=== PATIENT | female | born 1945 | race Caucasian/White ===

== ENCOUNTER 2016-08-25 07:47 | Inpatient (IN) | payer MEDICARE, OTHER ==
[2016-08-25 07:49] VITALS: BMI 27.8
[2016-08-25] MEDS ORDERED: Cefepime IV 2 gm in NS 2 GM/100 ML BAG IVPB STA (08:11)
[2016-08-25] MEDS ORDERED: Piperacill/Tazo 4.5gm in NS 4.5 GM/100 ML BAG IVPB STA (08:11)
[2016-08-25] MEDS ORDERED: Vancomycin 1gm in NS 250ml 1 GM/250 ML BAG IVPB STA (08:11)
--- NOTE | 2016-08-25 08:23 | ED PDOC ---
Arrival/HPI - General Chief Complaint: Fever Time Seen by Provider: 08/25/16 08:11 EM Caveat: Altered Mental Status - History of Present Illness Narrative History of Present Illness (Text): 08/25/16 08:23 71-year-old female with a history of liver cirrhosis on lactulose, presents to the emergency department with fever, lethargy, and decreased appetite. Patient' s daughter states that she has been running fevers upwards of 103 for which she has been giving her Tylenol and Advil at home with some relief. Also reports that she was on hospice, no longer on hospice. States that her mother's wishes are to be resuscitated with medications and CPR if necessary, but not intubated. Symptom Onset: Sudden Symptom Course: Unchanged Activities at Onset: Rest Modifying Factors (Text): tylenol and advil with some relief Context: Home Past Medical History - Provider Review Nursing Documentation Reviewed: Yes - Infectious Disease Hx of Infectious Diseases: None - Tetanus Immunization Tetanus Immunization: Unknown - Cardiac Hx Cardiac Disorders: Yes Hx Congestive Heart Failure: Yes Hx Hypertension: Yes - Pulmonary Hx Respiratory Disorders: Yes - Neurological Hx Neurological Disorder: No - HEENT Hx HEENT Disorder: Yes Hx Cataracts: Yes (b/l WITH SURGERY) - Renal Hx Renal Disorder: No - Endocrine/Metabolic Hx Endocrine Disorders: Yes Hx Diabetes Mellitus Type 2: Yes - Hematological/Oncological Hx Blood Disorders: Yes Hx Cirrhosis: Yes - Integumentary Hx Dermatological Disorder: No - Musculoskeletal/Rheumatological Hx Musculoskeletal Disorders: Yes Hx Falls: Yes Hx Unsteady Gait: Yes - Gastrointestinal Hx Gastrointestinal Disorders: Yes Hx Liver Failure: Yes - Genitourinary/Gynecological Hx Genitourinary Disorders: No - Psychiatric Hx Psychophysiologic Disorder: No Hx Substance Use: No - Past Surgical History Past Surgical History: Non-Contributing - Surgical History Hx Eye Surgery: Yes - Anesthesia Hx Anesthesia: Yes Hx Anesthesia Reactions: No Hx Malignant Hyperthermia: No - Suicidal Assessment Feels Threatened In Home Enviroment: No Family/Social History - Physician Review Nursing Documentation Reviewed: Yes Family/Social History: No Known Family HX Smoking Status: Never Smoked Hx Alcohol Use: No (OCCASIONALLY H/O QUIT) Hx Substance Use: No Hx Substance Use Treatment: No Allergies/Home Meds Allergies/Adverse Reactions: Allergies No Known Allergies Allergy (Verified 08/25/16 07:49) Home Medications: Home Meds Medication Instructions Recorded Confirmed Lactulose [Enulose] 30 ml PO BID 06/05/16 08/25/16 Furosemide [Lasix] 40 mg PO DAILY 06/10/16 08/25/16 Insulin Detemir [Levemir] 0 units SC BID 08/25/16 08/25/16 Insulin Lispro Mix 75/25 [HumaLOG 0 units SC BID 08/25/16 08/25/16 Mix 75/25] Iron Polysaccharide [Ferrex-150] 1 tab PO DAILY 08/25/16 08/25/16 Zinc [Zinc Sulfate 220 mg Cap] 220 mg PO DAILY 08/25/16 08/25/16 cloNIDine [Catapres] 0.3 mg PO BID 08/25/16 08/25/16 rifAXIMin [Xifaxan] 550 mg PO BID 08/25/16 08/25/16 Review of Systems - Review of Systems Systems not reviewed;Unavailable: Altered Mental Status Physical Exam - Physical Exam Physical Exam Limitations: Altered Mental Status Vital Signs Reviewed: Yes Vital Signs Temp Pulse Resp BP Pulse Ox 08/25/16 11:38 96.0 F L 82 24 72/44 L 08/25/16 11:09 59 L 08/25/16 10:45 60 88/54 L 94 L 08/25/16 10:30 68 82/49 L 94 L 08/25/16 10:15 62 72/42 L 95 08/25/16 10:00 95.9 F L 62 20 72/42 L 96 08/25/16 09:55 64 72/51 L 95 08/25/16 09:45 66 70/41 L 95 08/25/16 09:39 66 71/48 L 96 08/25/16 09:30 97.2 F L 08/25/16 09:24 65 72/42 L 95 08/25/16 09:09 71 66/34 L 96 08/25/16 08:54 65 68/34 L 95 08/25/16 08:11 99.5 F 08/25/16 08:00 99.3 F 82 20 68/39 L 96 Temperature: Afebrile Blood Pressure: Hypotensive Pulse: Regular Respiratory Rate: Normal Appearance: Positive for: Ill-Appearing Pain Distress: None Mental Status: Positive for: Lethargic. No: Agitated - Systems Exam Head: Present: Atraumatic, Normocephalic Pupils: Present: PERRL Extroacular Muscles: Present: EOMI Conjunctiva: Present: Normal Mouth: Present: Dry. No: Drooling, Trismus Neck: Present: Normal Range of Motion. No: Meningeal Signs, MIDLINE TENDERNESS Respiratory/Chest: Present: Good Air Exchange, Other (scattered rhonchi). No: Respiratory Distress, Accessory Muscle Use, Wheezes Cardiovascular: Present: Regular Rate and Rhythm, Normal S1, S2. No: Murmurs Abdomen: Present: Normal Bowel Sounds. No: Tenderness, Peritoneal Signs, Rebound, Guarding Back: Present: Normal Inspection. No: Midline Tenderness, Paraspinal Tenderness Upper Extremity: Present: Normal Inspection. No: Cyanosis, Edema Lower Extremity: Present: Normal Inspection. No: Edema Neurological: Present: GCS=15, CN II-XII Intact, Motor Func Grossly Intact, Other (following commands, no focal neurological deficits) Skin: Present: Warm, Dry, Normal Color. No: Rashes Psychiatric: Present: Alert. No: Anxious, Agitated Medical Decision Making ED Course and Treatment: Impression: 71-year-old female with history of liver disease, presents with fevers and lethargy. Appears dehydrated on physical examination. Patient is also hypotensive. Differential Diagnosis include but are not limited to: Sepsis versus dehydration versus electrolyte abnormalities versus pneumonia versus UTI Plan: -- EKG -- chest xray -- fluids -- antibiotics -- Reassess and disposition Progress Notes: EKG interpreted by ER physician. Normal sinus. No ST-segment elevations. Normal intervals. 08/25/16 10:40 pt still hypotensive after fluid bolus more alert on reeval ari Solitario, accepted pt to the MICU recommends bipap which has been ordered Dictator : Ascencion Love MD HISTORY: Sepsis Patient COMPARISON: 06/27/2016 LUNGS: Severe vascular and interstitial congestion most consistent with CHF PLEURA: No significant pleural effusion identified, no pneumothorax apparent. CARDIOVASCULAR: Mild cardiomegaly OSSEOUS STRUCTURES: No significant abnormalities. VISUALIZED UPPER ABDOMEN: Normal. OTHER FINDINGS: None. IMPRESSION: Severe vascular and interstitial congestion most consistent with CHF 08/25/16 10:[address] Carbajal, accepted admission to his service - Critical Care Critical Care Minutes: 30 minutes - Lab Interpretations Lab Results: 08/25/16 08:15 08/25/16 08:15 Lab Results 08/25/16 10:00: Blood Type B POSITIVE, Antibody Screen Negative, Crossmatch See Detail, BBK History Checked Patient has bt 08/25/16 08:15: Acetaminophen 12.0 08/25/16 08:15: Ammonia 13 08/25/16 08:15: Sodium 135, Chloride 106, Potassium 4.7, Carbon Dioxide 21, Anion Gap 13, BUN 60 H, Creatinine 2.8 H, Est GFR ( Amer) 20, Est GFR ( Non-Af Amer) 17, Random Glucose 112 H, Calcium 7.4 L, Phosphorus 3.8, Magnesium 2.2, Total Bilirubin 1.9 H, AST 63 H, ALT 57 H, Alkaline Phosphatase 294 H, Troponin I 0.06 D, Total Protein 6.0, Albumin 1.9 L, Globulin 4.0, Albumin/ Globulin Ratio 0.5 L 08/25/16 08:15: pO2 62 H, VBG pH 7.35, VBG pCO2 37.0 L, VBG HCO3 20.4 L, VBG Total CO2 21.5 L, VBG O2 Sat (Calc) 97.4 H, VBG Base Excess -4.7 L, VBG Potassium 4.8, Sodium 135.0, Chloride 113.0 H, Glucose 120 H, Lactate 4.5 H*, FiO2 21.0, Venous Blood Potassium 4.8 08/25/16 08:15: PT 15.3 H, INR 1.42 H, APTT 34.5 H 08/25/16 08:15: WBC 11.8 H D, RBC 2.31 L, Hgb 6.7 L* D, Hct 19.9 L*, MCV 86.1, MCH 29.0, MCHC 33.7, RDW 15.4 H, Plt Count 29 L*, MPV 9.2, Gran % 80.6 H, Lymph % (Auto) 13.1 L, [place] % (Auto) 5.3, Eos % (Auto) 0.8 L, Baso % (Auto) 0.2, Gran # 9.49 H, Lymph # 1.5, [place] # 0.6, Eos # 0.1, Baso # 0.02 08/25/16 08:00: Urine Color Yellow, Urine Appearance Sl cloudy, Urine pH 6.0, Ur Specific [place] 1.020, Urine Protein 100 H, Urine Glucose (UA) Negative, Urine Ketones Negative, Urine Blood Large H, Urine Nitrate Negative, Urine Bilirubin Negative, Urine Urobilinogen 0.2, Ur Leukocyte Esterase Large H, Urine RBC Tntc, Urine WBC Tntc, Ur Epithelial Cells 1 - 3, Amorphous Sediment Few, Urine Bacteria Many, Urine Other Uyeast I have reviewed the lab results: Yes - RAD Interpretation Radiology Orders: 08/25/16 08:11 CHEST PORTABLE [RAD] Stat - EKG Interpretation Interpreted by ED Physician: Yes Type: 12 lead EKG - Medication Orders Current Medication Orders: Discontinued Medications Cefepime HCl (Maxipime 2gm) 2 gm in 100 mls @ 100 mls/hr IVPB STAT STA PRN Reason: Protocol Stop: 08/25/16 09:10 Last Admin: 08/25/16 10:08 Dose: 100 mls/hr Sodium Chloride 2,200 ml/ IV (SUPPLIES) 2,200 mls @ 4,408.92 mls/hr IV ONCE ONE PRN Reason: 60 ML/KG/HR Stop: 08/25/16 08:12 Last Admin: 08/25/16 08:26 Dose: 4,408.92 mls/hr Vancomycin HCl (Vancomycin 1gm) 1 gm in 250 mls @ 167 mls/hr IVPB STAT STA PRN Reason: Protocol Stop: 08/25/16 09:40 Piperacillin Sod/Tazobactam Sod (Zosyn 4.5 Gm In Ns 100ml) 4.5 gm in 100 mls @ 200 mls/hr IVPB STAT STA PRN Reason: Protocol Stop: 08/25/16 08:40 Last Admin: 08/25/16 08:47 Dose: 200 mls/hr - Scribe Statement The provider has reviewed the documentation as recorded by the Scriberlinda Drake All medical record entries made by the Myriamiberlinda were at my direction and personally dictated by me. I have reviewed the chart and agree that the record accurately reflects my personal performance of the history, physical exam, medical decision making, and the department course for this patient. I have also personally directed, reviewed, and agree with the discharge instructions and disposition. Disposition/Present on Arrival - Present on Arrival Any Indicators Present on Arrival: No History of DVT/PE: No History of Uncontrolled Diabetes: No Urinary Catheter: No History of Decub. Ulcer: No History Surgical Site Infection Following: None - Disposition Have Diagnosis and Disposition been Completed?: Yes Diagnosis: SIRS (systemic inflammatory response syndrome) Disposition: HOSPITALIZED Disposition Time: 10:46 Patient Plan: Admission Patient Problems: Current Active Problems Problem Status Onset SIRS (systemic inflammatory response syndrome) Acute Condition: CRITICAL
[2016-08-25 08:29] LABS: ADD MANUAL DIFF? NO
[2016-08-25 08:32] LABS: BASO # 0.02 K/mm3 (0.0-2.0); BASO % 0.2 % (0.0-3.0); EOS # 0.1 (0.0-0.7); EOS % 0.8 % (1.5-5.0); GRAN # 9.49 (1.4-6.5); GRAN % 80.6 % (50.0-68.0); LYMPH # 1.5 (1.2-3.4); LYMPH % 13.1 % (22.0-35.0); MEAN CELL VOLUME 86.1 fL (80.0-105.0); MEAN CORPUSCULAR HGB CONC 33.7 g/dl (31.0-37.0); MEAN PLATELET VOLUME 9.2 fl (7.0-11.0); MONO # 0.6 (0.1-0.6); MONO % 5.3 % (1.0-6.0); RED CELL DISTRIBUTION WIDTH 15.4 % (11.5-14.5); VENOUS BLOOD GAS BASE EXCESS -4.7 mmol/L (0.0-2.0); VENOUS BLOOD PH 7.35 (7.32-7.43); WHITE BLOOD COUNT 11.8 10^3/ul (4.5-11.0)
[2016-08-25 08:39] LABS: HEMATOCRIT 19.9 % (36.0-48.0); PLATELET COUNT 29 10^3/uL (120.0-450.0)
[2016-08-25 08:46] LABS: ALB/GLOB RATIO 0.5 (1.1-1.8); BILIRUBIN,TOTAL 1.9 mg/dL (0.2-1.3); CALCIUM 7.4 mg/dL (8.4-10.5); MAGNESIUM 2.2 mg/dL (1.7-2.2); PHOSPHOROUS 3.8 mg/dL (2.5-4.5); POTASSIUM 4.7 mmol/L (3.6-5.0)
[2016-08-25 08:48] LABS: INR 1.42 (0.93-1.08); PARTIAL THROMBOPLASTIN TIME 34.5 Seconds (23.7-30.8)
[2016-08-25 08:57] LABS: TROPONIN I 0.06 ng/mL
[2016-08-25 09:17] LABS: URINE BILIRUBIN NEGATIVE (NEGATIVE); URINE BLOOD LARGE (NEGATIVE); URINE GLUCOSE (UA) NEGATIVE (NEGATIVE); URINE KETONE NEGATIVE (NEGATIVE); URINE LEUKOCYTE ESTERASE LARGE Leu/uL (NEGATIVE); URINE PROTEIN 100 mg/dL (<30 mg/dL); URINE UROBILINOGEN 0.2 E.U./dL (<1 E.U./dL)
[2016-08-25 09:22] LABS: URINE COLOR YELLOW (YELLOW)
[2016-08-25 09:23] LABS: URINE APPEARANCE SL CLOUDY (CLEAR)
[2016-08-25 09:31] LABS: URINE AMORPHOUS SEDIMENT FEW; URINE BACTERIA MANY (NEG); URINE RBC TNTC /hpf (0-2); URINE WBC TNTC /hpf (0-6)
--- NOTE | 2016-08-25 09:41 | RAD ---
HISTORY: Sepsis Patient COMPARISON: 06/27/2016 FINDINGS: LUNGS: Severe vascular and interstitial congestion most consistent with CHF PLEURA: No significant pleural effusion identified, no pneumothorax apparent. CARDIOVASCULAR: Mild cardiomegaly OSSEOUS STRUCTURES: No significant abnormalities. VISUALIZED UPPER ABDOMEN: Normal. OTHER FINDINGS: None. IMPRESSION: Severe vascular and interstitial congestion most consistent with CHF
[2016-08-25 11:55] LABS: VENOUS BLOOD PH 7.21 (7.32-7.43)
--- NOTE | 2016-08-25 13:06 | CP.PCM.CON ---
<Karla Lepe - Last Filed: 08/25/16 13:48> History of Present Illness - History of Present Illness History of Present Illness: PGY-[address] 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 Tmax 103 at home, BP 150, until this morning, it was low per daughter. Pt had loose bowel movement, brown, 3 x a day, which was her baseline on lactulose. No change in BM recently. Pt complained of abdominal bloating, b/l thigh pain posterior starting this AM. At ED, T 96. Then 94.6 rectal. on venita hugger BP 68/39 (baseline 150) Hb 6.7 (baseline 9), platelet 29 (baseline 50-70). Lactate 4.5 --> 4.6 No Leukocytosis Received 2.5 NS Received Cefepime, zosyn. Getting 1st unit pRBC. Will get 2 units of platelet and vanco afterwards. She was on bipap 12/5/35%. She is breathing at 23. Then D/C bipap, on 2L NS. ROS - (+) chills. 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 No tube feeding Still full code PMD: Dr. Carbajal GI: Dr. Hickman Past Patient History - Infectious Disease Hx of Infectious Diseases: None - Tetanus Immunizations Tetanus Immunization: Unknown - Past Social History Smoking Status: Never Smoked - CARDIAC Hx Cardiac Disorders: Yes Hx Congestive Heart Failure: Yes Hx Hypertension: Yes - PULMONARY Hx Respiratory Disorders: Yes - NEUROLOGICAL Hx Neurological Disorder: No - HEENT Hx HEENT Problems: Yes Hx Cataracts: Yes (b/l WITH SURGERY) - RENAL Hx Chronic Kidney Disease: No - ENDOCRINE/METABOLIC Hx Endocrine Disorders: Yes Hx Diabetes Mellitus Type 2: Yes - HEMATOLOGICAL/ONCOLOGICAL Hx Blood Disorders: Yes Hx Cirrhosis: Yes - INTEGUMENTARY Hx Dermatological Problems: No - MUSCULOSKELETAL/RHEUMATOLOGICAL Hx Musculoskeletal Disorders: Yes Hx Falls: Yes Hx Unsteady Gait: Yes - GASTROINTESTINAL Hx Gastrointestinal Disorders: Yes Hx Liver Failure: Yes - GENITOURINARY/GYNECOLOGICAL Hx Genitourinary Disorders: No - PSYCHIATRIC Hx Psychophysiologic Disorder: No Hx Substance Use: No - SURGICAL HISTORY Hx Eye Surgery: Yes - ANESTHESIA Hx Anesthesia: Yes Hx Anesthesia Reactions: No Hx Malignant Hyperthermia: No Meds Allergies/Adverse Reactions: Allergies Allergy/AdvReac Type Severity Reaction Status Date / Time No Known Allergies Allergy Verified 08/25/16 11:58 Physical Exam - Constitutional Appears: No Acute Distress - Head Exam Head Exam: ATRAUMATIC, NORMOCEPHALIC - Eye Exam Eye Exam: EOMI, Normal appearance, PERRL. absent: Scleral icterus - ENT Exam ENT Exam: Mucous Membranes Moist - Neck Exam Neck exam: Positive for: Normal Inspection Additional comments: R neck dressing d/c/i - Respiratory Exam Respiratory Exam: Clear to Auscultation Bilateral, Rales (at lung bases) - Cardiovascular Exam Cardiovascular Exam: REGULAR RHYTHM, +S1, +S2, Systolic Murmur - GI/Abdominal Exam GI & Abdominal Exam: Distended, Normal Bowel Sounds, Soft. absent: Firm, Rigid - Extremities Exam Extremities exam: Positive for: pedal edema, tenderness (posterior thigh b/l), pedal pulses present. Negative for: calf tenderness - Back Exam Back exam: absent: CVA tenderness (L), CVA tenderness (R) - Neurological Exam Neurological exam: Alert, Oriented x3 - Psychiatric Exam Psychiatric exam: Normal Affect, Normal Mood - Skin Skin Exam: Dry, Normal Color Results - Vital Signs Recent Vital Signs: Last Vital Signs Temp 95.4 F L 08/25/16 12:38 Pulse 85 08/25/16 12:38 Resp 24 08/25/16 12:38 BP 78/49 L 08/25/16 12:38 Pulse Ox 100 08/25/16 12:00 - Labs Result Diagrams: 08/25/16 08:15 08/25/16 08:15 Labs: Laboratory Results - last 24 hr 08/25/16 11:15 pO2 130 H VBG pH 7.21 L VBG pCO2 41.0 VBG HCO3 16.4 L VBG Total CO2 17.7 L VBG O2 Sat (Calc) 100.3 H VBG Base Excess -11.0 L VBG Potassium 5.1 Sodium 137.0 Chloride 117.0 H Glucose 89 Lactate 4.6 H* FiO2 21.0 Venous Blood Potassium 5.1 Assessment & Plan - Assessment and Plan (Free Text) Plan: 71 years old with (MELD 24), CKD stage 3, diastolic CHF, DM, comes in here for hypotension, likely due to sepsis from spontaneous bacterial peritonitis vs CAP vs UTI. Neuro - Ammonia 13 - Continue rifaximin and lactulose PO as tolerated by BP Cardio: - BP improves from 68/39 --> 91 - not on pressors - 2.5 L replenished - Hold central line placement (consent obtained) Pulm: - CXR slightly fluid overload - SaO2 100 on bipap now on 2L NC GI: - Pending abdominal U/S and paracentesis Albumin, total protein Amylase, lipase, LDH, glucose, Tg, CEA Cell count/diff, gram stain, culture - CT abd/pelvic from 05/25/16 showed mild ascites, hepatic cirrhosis, splenomegaly with multiple masses. - Abd US from 05/25/16 showed portal vein thrombosis, portal HTN. Renal - CKD stage 3 - Avoid nephrotoxic drugs as feasible. Maintain Euglycemia Endo - ISSS-low, levemir - Maintain Euglycemia Heme - Hb 6.7 (baseline 9), will get 2u pRBC - Plt 29 (baseline 50-70), will get 2u Platelet ID: - T 94.6 without leukocytosis. Maintain Normothermia. - Trend lactate, Expect remains high at 4.5 due to ineffective Cori cycle - Got Cefepime, Zosyn from ED. Will get vanco. Prophylaxis - Consider SCD pending doppler LE b/l - Protonix S/R/D/w Dr. Moshe Solitario - Date & Time Date: 08/25/16 Time: 13:42 <Mauricio Solitario MD - Last Filed: 08/25/16 15:32> Meds - Medications Medications: Current Medications Insulin Detemir (Levemir) 10 unit SC HS SAM Insulin Human Lispro (Humalog Low) 0 units SC ACHS SAM PRN Reason: Protocol Pantoprazole Sodium (Protonix Inj) 40 mg IVP DAILY [facility] Results - Vital Signs Recent Vital Signs: Last Vital Signs Temp 95.9 F L 08/25/16 15:23 Pulse 87 08/25/16 15:23 Resp 24 08/25/16 15:23 BP 86/52 L 08/25/16 15:23 Pulse Ox 100 08/25/16 13:20 - Labs Result Diagrams: 08/25/16 08:15 08/25/16 08:15 Labs: Laboratory Results - last 24 hr 08/25/16 08/25/16 11:15 14:13 pO2 130 H VBG pH 7.21 L VBG pCO2 41.0 VBG HCO3 16.4 L VBG Total CO2 17.7 L VBG O2 Sat (Calc) 100.3 H VBG Base Excess -11.0 L VBG Potassium 5.1 Sodium 137.0 Chloride 117.0 H Glucose 89 Lactate 4.6 H* FiO2 21.0 Lactate Dehydrogenase 755 H Total Creatine Kinase 128 Troponin I 0.04 D Venous Blood Potassium 5.1 Attending/Attestation - Attestation I have personally seen and examined this patient.: Yes I have fully participated in the care of the patient.: Yes I have reviewed all pertinent clinical information: Yes Notes (Text): 08/25/16 15:28 71 y/o F w/ Decompensated Liver Failure Cryptogenic Cirrohsis Liver TX work up was done and [facility], was not accepted. Has been on treatment for Encephalopathy at home Recent hx of fevers and concern for SBP. On empiric abx w/ Rocephin Needs Paracentesis to check for SBP. Mental status intact and following commands. G.I consulted. No further escalation of care. familt uncertain of the next step in the event that the patient worsens. Doesn't was Intubation but unclear of the other life saving measures. T.Bili within her baseline Elevated creatnine, watch for urine output after N.S x3 and PRBC x 2 by ER. Will need nephrology consult to monitor for need for HD /and or HRS treatment . May need Albumin around the clock. if paracentesis is done would give 75gm of Albumin . DVT p SCD cc time 72 min
[2016-08-25 14:47] LABS: TROPONIN I 0.04 ng/mL
[2016-08-25] MEDS ORDERED: Pneumococcal 23-Valent Vaccine IM ONE (15:13)
--- NOTE | 2016-08-25 15:36 | CARD ---
APPROVED REPORT EKG Measurement Heart [id number] <Conclusion> Normal sinus rhythm Normal ECG
--- NOTE | 2016-08-25 16:05 | US ---
HISTORY: Leg pain and swelling. Evaluate for DVT PHYSICIAN(S): Andrez Stearns MD. TECHNIQUE: Duplex sonography and color-flow Doppler with graded compression were used to evaluate the deep venous systems of both lower extremities. The exam is limited by edema. FINDINGS: The visualized deep venous systems of both lower extremities are sonographically normal and compressible. Normal wave forms and augmentation are seen. There is no sonographic evidence for deep venous thrombosis in the visualized segments of both lower extremities. There is superficial thrombophlebitis which is echogenic in appearance, noted in the left GSV IMPRESSION: No sonographic evidence for deep venous thrombosis in the visualized segments of both lower extremities. Superficial thrombophlebitis in the proximal left GSV, age indeterminate
--- NOTE | 2016-08-25 16:26 | US ---
HISTORY: Suspected ascites, pt has low BP COMPARISON: Comparison made with CT scan abdomen pelvis 06/14/2016 and ultrasound abdomen 06/10/2016 respectively. TECHNIQUE: Sonographic evaluation of the abdomen. FINDINGS: LIVER: Measures 13cm. Heterogeneous with irregular nodular contour. Findings suggest underlying hepatic cirrhosis. Rule out fatty infiltration versus other infiltrative hepatocellular disease process. Abdominal ascites present. No obvious hepatic mass. GALLBLADDER: Intraluminal gallbladder calculi. No pericholecystic fluid collections the No sonographic Charles sign COMMON BILE DUCT: Measures 3 mm . No stones. No dilatation. PANCREAS: Unremarkable as visualized. No mass. No ductal dilatation. RIGHT KIDNEY: Measures 10.3 x 5.4 x 4.3cm. Normal echogenicity. No calculus, mass, or hydronephrosis. LEFT KIDNEY: Measures 9.8 x 4.2 x 5.1 cm. Normal echogenicity. No calculus, mass, or hydronephrosis. SPLEEN: Spleen is enlarged measuring 16 cm in greatest dimension. There are multiple (approximately 7) splenic cysts are present which have been measured an available on PACs images. In addition, the cysts are so also seen to better advantage on prior CT scan. AORTA: No aneurysmal dilatation. IVC: Unremarkable. OTHER FINDINGS: None. IMPRESSION: Heterogeneous hepatic parenchyma; the suggest hepatic cirrhosis. . There is abdominal ascites. Splenomegaly. There are multiple splenic cysts as above
[2016-08-25] MEDS ORDERED: Insulin Lispro (humaLOG) LOW Coverage SC SCH (16:30)
--- NOTE | 2016-08-25 16:54 | PN ---
DATE: 08/25/2016 I reviewed the abdominal ultrasound on the patient dated 08/25/2016. The liver is cirrhotic. There is a trace amount of perihepatic ascites. Simple liver cysts are appreciated. There is not enough fluid for diagnostic or therapeutic paracentesis. A paracentesis will not performed given the amount of fluid seen on abdominal ultrasound. A CT scan of the abdomen and pelvis can be performed if clinically indicated. Andrez Stearns MD cc: [id number] TT: 08/25/2016 16:53:36 Confirmation # [id number] Dictation # [id number] MTDD
[2016-08-25] MEDS ORDERED: Albumin Human 25% (12.5 gm/50 ml) IV SCH (17:00)
[2016-08-25] MEDS ORDERED: Dextrose 50% SYRINGE Inj (50 ml) IVP ONE (17:04)
[2016-08-25 18:51] VITALS: BP 92/56; TEMP 97.5; O2SAT 100
[2016-08-25] MEDS ORDERED: Morphine 4 mg/ml ISec IVP PRN (19:23)
--- NOTE | 2016-08-25 20:05 | CP.PCM.PRO ---
Pronouncement of Note - Clinical Findings Physical Exam: No Response Verbal/Painful Stimuli, Absent Peripheral Pulses{ Carotid & Femoral}, Absent Heart & Breath Sounds, No Pupillary Light Reflex, No Corneal Reflex, Pupils Fixed & Dilated, Absence of Vital Signs - Pronouncement Time Time of Pronouncement of : 19:50 - Notifications Pronouncement Notifications: Family Notified (Multiple members by bedside who were made aware.), Atending Notified (Nurse will inform.) Senior Software Test Engineer Notified: Yes - Autopsy Autopsy Requested: No - [place] [id number]
[2016-08-25 20:33] VITALS: PULSE 98
[2016-08-25 20:46] VITALS: RESP 20
[2016-08-25] MEDS ORDERED: Insulin Detemir 100 units/ml Vial (Levemir) SC SCH (22:00)
--- NOTE | 2016-08-26 22:55 | CARD ---
APPROVED REPORT EKG Measurement Heart [id number] <Conclusion> Sinus tachycardia Otherwise normal ECG
== END 2016-08-25 23:15 | DRG 871 ==
LOC: ED 07:47 → ERH 10:47 → CCU 13:34
PROVIDERS: ADMIT Internal Medicine; ATTEND Internal Medicine
DX: A41.9 Sepsis, unspecified organism (principal); I81 Portal vein thrombosis; I13.0 Hypertensive heart and chronic kidney disease with heart failure and stage 1 through stage 4 chronic kidney disease, or unspecified chronic kidney disease; K65.2 Spontaneous bacterial peritonitis; I50.30 Unspecified diastolic (congestive) heart failure; R18.8 Other ascites; K76.6 Portal hypertension; N39.0 Urinary tract infection, site not specified; E11.22 Type 2 diabetes mellitus with diabetic chronic kidney disease; K74.60 Unspecified cirrhosis of liver; E86.0 Dehydration; N18.3 Chronic kidney disease, stage 3 (moderate); Z98.42 Cataract extraction status, left eye; Z98.41 Cataract extraction status, right eye; R26.81 Unsteadiness on feet; R40.2412 Glasgow coma scale score 13-15, at arrival to emergency department; I51.7 Cardiomegaly; R16.1 Splenomegaly, not elsewhere classified; K76.89 Other specified diseases of liver; B96.89 Other specified bacterial agents as the cause of diseases classified elsewhere; Z66 Do not resuscitate